=== PATIENT | female | born 1990 | race African-American/Black ===

== ENCOUNTER 2020-10-08 22:26 | Inpatient (IN) | payer OTHER ==
[~2020-10-08] VITALS: Ht 170.2 cm; Wt 110.7 kg
[2020-10-08] MEDS ORDERED: ONDANSETRON PF 4 MG/2 ML VIAL. IVP PRN (22:45)
[2020-10-08] MEDS ORDERED: OXYTOCIN 30 UNIT/500 ML PREMIX 500 ML IV PRN (22:45)
[2020-10-08] MEDS ORDERED: IBUPROFEN 400 MG TABLET. PO PRN (22:45)
[2020-10-08] MEDS ORDERED: 0.9 % SODIUM CHLORIDE 10 ML DISP.SYRIN. IV PRN (22:45)
[2020-10-08] MEDS ORDERED: LIDOCAINE 1% PF 30 ML VIAL. INJ PRN (22:45)
[2020-10-08] MEDS ORDERED: ACETAMINOPHEN 325 MG TABLET. PO PRN (22:45)
[2020-10-08] MEDS ORDERED: IV RINGERS,LACTATED 1000ML 1,000 ML IV PRN (22:45)
[2020-10-08] MEDS ORDERED: TERBUTALINE 1 MG/ML VIAL. SQ PRN (22:45)
[2020-10-09] VITALS (8 sets, daily range): BP systolic 115–143; BP diastolic 59–85
[2020-10-09] MEDS ORDERED: L&D EPIDURAL SYRINGE 50 ML EPID PRN (00:15)
[2020-10-09] MEDS ORDERED: OXYTOCIN PREMIX 30 UNIT/500 ML NS BAG. IV ONE (01:15)
[2020-10-09 01:25] LABS: BASO # 0.1 x10^3/uL (0.0-0.2); BASO % 1 % (0-3); EOS % 0 % (0-3); HEMOGLOBIN 11.9 g/dL (12.0-15.5); LYMPH # 1.9 x10^3/uL (1.0-4.8); LYMPH % 29 % (24-48); MEAN CORPUSCULAR HEMOGLOBIN 28 pg (25-35); MEAN CORPUSCULAR HGB CONC 33 g/dL (31-37); MEAN CORPUSCULAR VOLUME 84 fL (79-100); MONO # 0.7 x10^3/uL (0.0-1.1); MONO % 12 % (0-9); NEUT # 3.7 x10^3/uL (1.8-7.7); NEUT % 58 % (31-73); PLATELET COUNT 140 x10^3/uL (140-400); RED BLOOD COUNT 4.31 x10^6/uL (3.50-5.40); RED CELL DISTRIBUTION WIDTH 14.9 % (11.5-14.5); WHITE BLOOD COUNT 6.4 x10^3/uL (4.0-11.0)
[2020-10-09] MEDS ORDERED: ROPIVacaine 0.2% PF 10 ML VIAL. ONE (01:57)
[2020-10-09] MEDS ORDERED: SUCCINYLCHOLINE 200 MG/10 ML VIAL. ONE (02:11)
[2020-10-09] MEDS ORDERED: ROCURONIUM 50 MG/5 ML VIAL. ONE (02:12)
[2020-10-09] MEDS ORDERED: fentaNYL PF VIAL 100 MCG/2 ML VIAL ONE ×2 (02:17→02:32)
[2020-10-09] MEDS ORDERED: OXYTOCIN 10 UNIT/ML VIAL. ONE (02:37)
[2020-10-09] MEDS ORDERED: ONDANSETRON PF 4 MG/2 ML VIAL. ONE (02:40)
[2020-10-09] MEDS ORDERED: FAMOTIDINE 20 MG/2 ML VIAL ONE (02:40)
[2020-10-09] MEDS ORDERED: IV RINGERS,LACTATED 1000ML 1,000 ML IV SCH (02:45)
[2020-10-09] MEDS ORDERED: PROCHLORPERAZINE 10 MG/2 ML VIAL. IV PRN (02:45)
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
[2020-10-09] MEDS ORDERED: ceFAZolin SODIUM IV Push 1 GM VIAL. IVP ONE (03:06)
[2020-10-09] MEDS ORDERED: SEVOFLURANE 31 TO 60 MINUTES. IH ONE (03:13)
--- NOTE | 2020-10-09 03:15 | PDOC1 ---
OB - History Hx of Present Care: Good Care Ultrasounds: Normal mid trimester US Obstetrical Complications: Gestational Diabetes Medical Complications: None Past Family/Social History * Past Medical, Surgical, Family and Obstetric Histories reviewed from chart. Rubella: Immune RPR/VDRL: Negative GBS Status: Negative HBsAG: Negative OB - Chief Complaint & HPI Date of Admission: Date of Admission: Oct 08, 2020 at 22:26 Chief Complaint/History : 5 Para: 3 EGA: 38 Reason for admission: active labor Admission Nurse Assessment Rev: Yes OB - Admission Exam Physical Exam HEENT: Normal Heart: Regular Rate Lungs: Clear Abdomen: Gravid, Non tender, Soft Extremities: Edema Reflexes: Normal Cervical Dilatation: 7cm Effacement: 100% Station: -2 Membranes: Intact Heart Rate: Normal Accelerations: Accelerations Present Decelerations: Variable decelerations Contractions on Admission: < 5 Minutes Apart Intensity: Firm Text A: 38 wks IUP GDM A1 Limited PNC P: Admit labor management. KATTY KRAUSE Jr, MD Oct 09, 2020 03:14
--- NOTE | 2020-10-09 03:21 | RAD ---
XR ABDOMEN 1V 10/09/2020 2:49 AM INDICATION: Instrument count COMPARISON: None available. TECHNIQUE: Single supine view the abdomen is provided. FINDINGS/ IMPRESSION: No radiopaque foreign density is identified. Phleboliths are identified within the pelvis. Nonobstructed bowel gas pattern. Electronically signed by: Georgette Saenz MD (10/09/2020 3:18 AM) JESUS
--- NOTE | 2020-10-09 03:21 | PDOC4 ---
OB Operative Note Date: Oct 09, 2020 PRE OP DIAGNOSIS: NRFHT POST OP DIAGNOSIS: NRFHT OPERATION PERFORMED: L [facility] Surgeon Dr. Quiroga Anesthesia: Gen Blood Loss 1000 ml Specimen placenta and OB Findings: Position (Vertex), Sex (Male), (7/9), Weight (pending) Complications none Additional Remarks pt. KATTY Simon Jr, MD Oct 09, 2020 03:21
[2020-10-09] MEDS ORDERED: ZOLPIDEM 5 MG TABLET. PO PRN (03:30)
[2020-10-09] MEDS ORDERED: diphenhydrAMINE ORAL ELIXIR 12.5 MG/5 ML ML PO PRN (03:30)
[2020-10-09] MEDS ORDERED: ONDANSETRON PF 4 MG/2 ML VIAL. IV PRN (03:30)
[2020-10-09] MEDS ORDERED: NALOXONE 0.4 MG/ML VIAL. IV PRN (03:30)
[2020-10-09] MEDS ORDERED: MAG HYDROX/ALUMINUM HYD/SIMETH 30 ML ORAL.SUSP PO PRN (03:30)
[2020-10-09] MEDS ORDERED: 0.9 % SODIUM CHLORIDE 10 ML DISP.SYRIN. IV PRN (03:30)
[2020-10-09] MEDS ORDERED: IV NORMAL SALINE 1000ML BAG 1,000 ML IV SCH (03:30)
[2020-10-09] MEDS ORDERED: OXYTOCIN 30 UNIT/500 ML PREMIX 500 ML IV PRN (03:30)
[2020-10-09] MEDS: fentaNYL PF VIAL 100 MCG/2 ML VIAL IVP PRN ×3 (03:54→05:28)
--- NOTE | 2020-10-09 04:49 | OP ---
DATE OF SURGERY: PREOPERATIVE DIAGNOSES: 1. A 38 weeks' intrauterine . 2. intolerance to labor. POSTOPERATIVE DIAGNOSES: 1. A 38 weeks' intrauterine . 2. intolerance to labor. PROCEDURE: Primary low transverse section. SURGEON: Katty Quiroga MD ANESTHESIA: GETA. ESTIMATED BLOOD LOSS: 1000 mL. FINDINGS: Viable infant, Apgars 7 and 9, weight pending. Three-vessel cord placenta delivered manually intact. COMPLICATIONS: None. SUMMARY: A 30-year-old 5, para 3, at 38 weeks, presented in active labor. She was dilated up to 7 cm. The patient had rupture of membranes for which internal monitors were placed. The patient was still demonstrated bradycardia down in the 50s. She was counseled on emergency section, risks, benefits and expectations, and voiced clear understanding to proceed. DESCRIPTION OF PROCEDURE: The patient was taken to surgery suite and placed in dorsal supine position, was prepped with ChloraPrep and draped in sterile fashion. After adequate anesthesia, Pfannenstiel skin incision was made with a scalpel down to and through the fascia. The fascia was extended laterally using curved Chavarria scissors. The superior edge of fascia was grasped with 2 Joel clamps and dissected free of the abdominal rectus muscles using blunt dissection along with curved Chavarria scissors. The same process took place inferiorly. The abdominal rectus muscle dissected bluntly at the midline along with curved Chavarria scissors. Peritoneum was grasped with 2 hemostats and entered sharply with Metzenbaum scissors. This incision was extended superiorly as well as inferiorly. The Reilly ring retractor was placed. A low transverse hysterotomy incision was made with scalpel down to the infant. Hysterotomy incision was extended laterally and superiorly digitally. With the aid of fundal pressure, the infant's head was delivered in a smooth atraumatic manner. With additional fundal pressure, the anterior shoulder was delivered followed by posterior shoulder and rest of was delivered. Infant was suctioned with a bulb syringe orally and nasally, umbilical cord was clamped twice and cut, and the was handed to waiting nursing staff. Umbilical cord blood and arterial pH was then obtained. Three-vessel cord placenta was delivered manually intact. The uterus was exteriorized and cleared of clot and debris with moist lap. Hysterotomy incision was reapproximated using #1 Vicryl suture in running fashion and imbricated layer of #1 Vicryl suture was also placed for good hemostasis. [id number] suture was placed in both apexes of the hysterotomy incision for better hemostasis. Uterus palpated firm. Fallopian tubes and ovaries appeared normal bilaterally. Posterior cul-de-sac was cleared of clot and debris with moist lap. The uterus was then returned to the abdomen. Paracolic gutters were cleared of clot and debris with moist lap. The hysterotomy incision reviewed, was hemostatic. The Reilly ring retractor was removed. The peritoneum was reapproximated using #1 Vicryl suture in running fashion. Abdominal rectus muscles were reapproximated using #1 Vicryl suture in running fashion. Fascia was reapproximated using 0 Vicryl suture in running fashion. Skin was reapproximated using 4-0 Vicryl suture in subcuticular manner. The patient tolerated the procedure well and was taken to recovery room in stable condition. X-ray was performed due to emergency , and x-ray did not indicate any retained instruments or sponges. KATTY QUIROGA MD DR: PARTH/maru JOB#: [id number] / [id number]
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
[2020-10-09] MEDS: KETOROLAC 30 MG/ML VIAL. IV PRN ×2 (11:04→17:18)
[2020-10-09] MEDS: oxyCODONE/APAP 5/325 1 TAB TABLET PO PRN ×3 (11:58→20:05)
[2020-10-09] MEDS: SIMETHICONE 80 MG TAB.CHEW PO PRN (15:28)
[2020-10-09] MEDS: FERROUS SULFATE 325 MG TABLET. PO SCH ×2 (17:00→17:18)
[2020-10-09] MEDS: DOCUSATE SODIUM 100 MG CAPSULE. PO PRN (17:18)
[2020-10-09] MEDS: IBUPROFEN 400 MG TABLET. PO PRN (17:25)
[2020-10-10] MEDS: oxyCODONE/APAP 5/325 1 TAB TABLET PO PRN ×6 (00:39→22:50)
[2020-10-10] MEDS: IBUPROFEN 400 MG TABLET. PO PRN ×3 (04:20→22:51)
[2020-10-10 06:30] VITALS: BP 152/89
[2020-10-10 09:00] LABS: BASO % 0 % (0-3); EOS % 0 % (0-3); HEMATOCRIT 25.3 % (36.0-47.0); HEMOGLOBIN 8.2 g/dL (12.0-15.5); LYMPH # 1.8 x10^3/uL (1.0-4.8); LYMPH % 21 % (24-48); MEAN CORPUSCULAR HEMOGLOBIN 28 pg (25-35); MEAN CORPUSCULAR HGB CONC 33 g/dL (31-37); MEAN CORPUSCULAR VOLUME 85 fL (79-100); MONO # 0.7 x10^3/uL (0.0-1.1); MONO % 8 % (0-9); NEUT # 5.9 x10^3/uL (1.8-7.7); NEUT % 70 % (31-73); PLATELET COUNT 139 x10^3/uL (140-400); RED BLOOD COUNT 2.97 x10^6/uL (3.50-5.40); RED CELL DISTRIBUTION WIDTH 14.9 % (11.5-14.5); WHITE BLOOD COUNT 8.4 x10^3/uL (4.0-11.0)
[2020-10-10] MEDS: DOCUSATE SODIUM 100 MG CAPSULE. PO PRN ×2 (09:28→21:20)
[2020-10-10] MEDS: MULTIVITAMIN with MINERAL TABLET. PO SCH (09:28)
[2020-10-10] MEDS: FERROUS SULFATE 325 MG TABLET. PO SCH ×2 (09:28→17:10)
[2020-10-10 10:25] VITALS: BP 128/75
--- NOTE | 2020-10-10 13:35 | PDOC ---
OB Progress Note Date of Service 10/10/20 Time of Evaluation 1330 Notes Pt. feeling well. Pain controlled. No complaints. Lab Laboratory Tests Test 10/09/20 01:10 10/09/20 01:25 10/10/20 08:30 White Blood Count 6.4 x10^3/uL (4.0-11.0) 8.4 x10^3/uL (4.0-11.0) Red Blood Count 4.31 x10^6/uL (3.50-5.40) 2.97 x10^6/uL (3.50-5.40) Hemoglobin 11.9 g/dL (12.0-15.5) 8.2 g/dL (12.0-15.5) Hematocrit 36.0 % (36.0-47.0) 25.3 % (36.0-47.0) Mean Corpuscular Volume 84 fL (79-100) 85 fL (79-100) Mean Corpuscular Hemoglobin 28 pg (25-35) 28 pg (25-35) Mean Corpuscular Hemoglobin Concent 33 g/dL (31-37) 33 g/dL (31-37) Red Cell Distribution Width 14.9 % (11.5-14.5) 14.9 % (11.5-14.5) Platelet Count 140 x10^3/uL (140-400) 139 x10^3/uL (140-400) Neutrophils (%) (Auto) 58 % (31-73) 70 % (31-73) Lymphocytes (%) (Auto) 29 % (24-48) 21 % (24-48) Monocytes (%) (Auto) 12 % (0-9) 8 % (0-9) Eosinophils (%) (Auto) 0 % (0-3) 0 % (0-3) Basophils (%) (Auto) 1 % (0-3) 0 % (0-3) Neutrophils # (Auto) 3.7 x10^3/uL (1.8-7.7) 5.9 x10^3/uL (1.8-7.7) Lymphocytes # (Auto) 1.9 x10^3/uL (1.0-4.8) 1.8 x10^3/uL (1.0-4.8) Monocytes # (Auto) 0.7 x10^3/uL (0.0-1.1) 0.7 x10^3/uL (0.0-1.1) Eosinophils # (Auto) 0.0 x10^3/uL (0.0-0.7) 0.0 x10^3/uL (0.0-0.7) Basophils # (Auto) 0.1 x10^3/uL (0.0-0.2) 0.0 x10^3/uL (0.0-0.2) Glucose Level 82 mg/dL (70-99) Treponema pallidum Antibody Nonreactive (Nonreactive) SARS-CoV-2 Antigen (Rapid) Negative (NEGATIVE) Laboratory Tests Test 10/10/20 08:30 White Blood Count 8.4 x10^3/uL (4.0-11.0) Red Blood Count 2.97 x10^6/uL (3.50-5.40) Hemoglobin 8.2 g/dL (12.0-15.5) Hematocrit 25.3 % (36.0-47.0) Mean Corpuscular Volume 85 fL (79-100) Mean Corpuscular Hemoglobin 28 pg (25-35) Mean Corpuscular Hemoglobin Concent 33 g/dL (31-37) Red Cell Distribution Width 14.9 % (11.5-14.5) Platelet Count 139 x10^3/uL (140-400) Neutrophils (%) (Auto) 70 % (31-73) Lymphocytes (%) (Auto) 21 % (24-48) Monocytes (%) (Auto) 8 % (0-9) Eosinophils (%) (Auto) 0 % (0-3) Basophils (%) (Auto) 0 % (0-3) Neutrophils # (Auto) 5.9 x10^3/uL (1.8-7.7) Lymphocytes # (Auto) 1.8 x10^3/uL (1.0-4.8) Monocytes # (Auto) 0.7 x10^3/uL (0.0-1.1) Eosinophils # (Auto) 0.0 x10^3/uL (0.0-0.7) Basophils # (Auto) 0.0 x10^3/uL (0.0-0.2) Medications Current Medications Sodium Chloride (Normal Saline Flush) 3 ml QSHIFT PRN IV AFTER MEDS AND BLOOD DRAWS; Start 10/08/20 at 22:45; Stop 10/09/20 at 10:45; Status DC Ringer's Solution 1,000 ml @ 125 mls/hr Q8H PRN IV hydration; Start 10/08/20 at 22:45 Fentanyl Citrate (Fentanyl 2ml Vial) 100 mcg PRN Q30MIN PRN IVP Severe pain Last administered on 10/09/20at 05:28; Start 10/08/20 at 22:45 Acetaminophen (Tylenol) 650 mg PRN Q6HRS PRN PO MILD PAIN / TEMP > 100.3'F Last administered on 10/09/20at 23:06; Start 10/08/20 at 22:45 Ondansetron HCl (Zofran) 8 mg PRN Q6HRS PRN IVP NAUSEA/VOMITING 1ST CHOICE; Start 10/08/20 at 22:45; Stop 10/09/20 at 10:46; Status DC Terbutaline Sulfate (Brethine) 0.25 mg 1X PRN PRN SQ SEE COMMENTS; Start 10/08/20 at 22:45; Stop 10/09/20 at 22:44; Status DC Lidocaine HCl (Xylocaine 1% Pf 30ml Vial) 30 ml 1X PRN PRN INJ SEE COMMENTS; Start 10/08/20 at 22:45; Stop 10/10/20 at 22:44 Oxytocin 500 ml @ 0 mls/hr CONT PRN PRN IV Post delivery bleeding; Start 10/08/20 at 22:45 Ibuprofen (Motrin) 800 mg PRN Q6HRS PRN PO MODERATE PAIN 4-6; Start 10/08/20 at 22:45; Stop 10/09/20 at 10:46; Status DC Fentanyl Citrate 50 ml @ 14 mls/hr CONT PRN EPID PAIN; Start 10/09/20 at 00:15 Ropivacaine (Naropin 0.2%) 10 ml STK-MED ONCE .ROUTE ; Start 10/09/20 at 01:57; Stop 10/09/20 at 01:58; Status DC Succinylcholine Chloride (Anectine) 200 mg STK-MED ONCE .ROUTE ; Start 10/09/20 at 02:11; Stop 10/09/20 at 02:11; Status DC Rocuronium [place] (Zemuron) 50 mg STK-MED ONCE .ROUTE ; Start 10/09/20 at 02:12; Stop 10/09/20 at 02:13; Status DC Fentanyl Citrate (Fentanyl 2ml Vial) 100 mcg STK-MED ONCE .ROUTE ; Start 10/09/20 at 02:17; Stop 10/09/20 at 02:17; Status DC Fentanyl Citrate (Fentanyl 2ml Vial) 100 mcg STK-MED ONCE .ROUTE ; Start 10/09/20 at 02:32; Stop 10/09/20 at 02:32; Status DC Oxytocin (Pitocin) 10 unit STK-MED ONCE .ROUTE ; Start 10/09/20 at 02:37; Stop 10/09/20 at 02:37; Status DC Ringer's Solution 1,000 ml @ 30 mls/hr Q24H IV Last administered on 10/09/20at 06:20; Start 10/09/20 at 02:45; Stop 10/09/20 at 14:44; Status DC Prochlorperazine Edisylate (Compazine) 5 mg PACU PRN PRN IV NAUSEA, MRX1; Start 10/09/20 at 02:45; Stop 10/09/20 at 10:50; Status DC Famotidine (Pepcid Vial) 20 mg STK-MED ONCE .ROUTE ; Start 10/09/20 at 02:40; Stop 10/09/20 at 02:40; Status DC Ondansetron HCl (Zofran) 4 mg STK-MED ONCE .ROUTE ; Start 10/09/20 at 02:40; Stop 10/09/20 at 02:41; Status DC Ephedrine Sulfate (Akovaz) 50 mg STK-MED ONCE .ROUTE ; Start 10/09/20 at 03:03; Stop 10/09/20 at 03:03; Status DC Cefazolin Sodium (Ancef) 1 gm STK-MED ONCE IVP ; Start 10/09/20 at 03:06; Stop 10/09/20 at 03:06; Status DC Sevoflurane (Ultane) 30 ml STK-MED ONCE IH ; Start 10/09/20 at 03:13; Stop 10/09/20 at 03:14; Status DC Sodium Chloride (Normal Saline Flush) 3 ml QSHIFT PRN IV AFTER MEDS AND BLOOD DRAWS; Start 10/09/20 at 03:30 Oxytocin 500 ml @ 125 mls/hr CONT PRN IV EXCESSIVE POST- BLEEDING; Start 10/09/20 at 03:30; Stop 10/09/20 at 11:29; Status DC Ibuprofen (Motrin) 800 mg PRN Q8HRS PRN PO INFLAMMATION Last administered on 10/10/20 04:20; Start 10/09/20 at 03:30 Ondansetron HCl (Zofran) 4 mg PRN Q6HRS PRN IV NAUSEA/VOMITING 1ST CHOICE; Start 10/09/20 at 03:30 Docusate Sodium (Colace) 100 mg PRN BID PRN PO CONSTIPATION 1ST CHOICE Last administered on 10/10/20 09:28; Start 10/09/20 at 03:30 Al Hydroxide/Mg Hydroxide (Mylanta Plus Xs) 30 ml PRN Q4HRS PRN PO HEARTBURN / GAS Last administered on 10/09/20at 23:06; Start 10/09/20 at 03:30 Simethicone (Gas-X) 80 mg PRN AFTMEALHC PRN PO GAS / BLOATING Last administered on 10/09/20at 15:28; Start 10/09/20 at 03:30 Diphenhydramine HCl (Benadryl Oral Elixir) 12.5 mg PRN Q6HRS PRN PO ITCHING; Start 10/09/20 at 03:30 Ferrous Sulfate (Feosol) 325 mg BIDWMEALS PO Last administered on 10/10/20 09:28; Start 10/09/20 at 08:00 Zolpidem Tartrate (Ambien) 5 mg PRN QHS PRN PO INSOMNIA, MAY REPEAT X1; Start 10/09/20 at 03:30 Oxycodone/ Acetaminophen (Percocet 5/325) 2 tab PRN Q4HRS PRN PO MODERATE PAIN, SEVERE PAIN Last administered on 10/10/20at 11:42; Start 10/09/20 at 03:30 Ketorolac Tromethamine (Toradol 30mg Vial) 30 mg PRN Q6HRS PRN IV INFLAMMATION/PAIN Last administered on 10/09/20at 11:04; Start 10/09/20 at 03:30; Stop 10/14/20 at 03:29 Multivitamins (Thera M Plus) 1 tab DAILY PO Last administered on 10/10/20at 09:28; Start 10/09/20 at 09:00 Fentanyl Citrate 30 ml @ 0 mls/hr CONT PRN PRN IV PER PROTOCOL Last a dministered on 10/09/20at 05:49; Start 10/09/20 at 03:30 Naloxone HCl (Narcan) 0.4 mg PRN Q2MIN PRN IV SEE INSTRUCTIONS; Start 10/09/20 at 03:30 Sodium Chloride 1,000 ml @ 25 mls/hr Q24H IV ; Start 10/09/20 at 03:30 Oxytocin (Oxytocin Premix Infusion) 30 unit STK-MED ONCE IV ; Start 10/09/20 at 01:15; Stop 10/09/20 at 08:52; Status DC Exam Abd: soft, mild tenderness, fundus firm Incision site: clean, dry and intact Assessment POD#1 s/p c/s Plan of Care: Continue current Tx, Mgmt KATTY KRAUSE Jr, MD Oct 10, 2020 13:35
[2020-10-10 17:15] VITALS: BP 138/76
[2020-10-10 21:39] VITALS: BP 125/75
[2020-10-11] MEDS: oxyCODONE/APAP 5/325 1 TAB TABLET PO PRN ×4 (05:24→22:39)
[2020-10-11 05:30] VITALS: BP 129/80
[2020-10-11] MEDS: FERROUS SULFATE 325 MG TABLET. PO SCH ×2 (08:12→18:32)
[2020-10-11] MEDS: DOCUSATE SODIUM 100 MG CAPSULE. PO PRN ×2 (08:12→20:12)
[2020-10-11] MEDS: MULTIVITAMIN with MINERAL TABLET. PO SCH (08:13)
[2020-10-11] MEDS: IBUPROFEN 400 MG TABLET. PO PRN ×2 (09:33→20:11)
[2020-10-11 11:45] VITALS: BP 143/83
[2020-10-11] MEDS ORDERED: HYDROcodone/APAP 5/325MG 1 TAB TABLET PO PRN ×2 (14:00)
--- NOTE | 2020-10-11 14:09 | PDOC ---
OB Progress Note Date of Service 10/11/20 Time of Evaluation 1400 Notes Pt. feeling well. No complaints. Lab Laboratory Tests Test 10/10/20 08:30 White Blood Count 8.4 x10^3/uL (4.0-11.0) Red Blood Count 2.97 x10^6/uL (3.50-5.40) Hemoglobin 8.2 g/dL (12.0-15.5) Hematocrit 25.3 % (36.0-47.0) Mean Corpuscular Volume 85 fL (79-100) Mean Corpuscular Hemoglobin 28 pg (25-35) Mean Corpuscular Hemoglobin Concent 33 g/dL (31-37) Red Cell Distribution Width 14.9 % (11.5-14.5) Platelet Count 139 x10^3/uL (140-400) Neutrophils (%) (Auto) 70 % (31-73) Lymphocytes (%) (Auto) 21 % (24-48) Monocytes (%) (Auto) 8 % (0-9) Eosinophils (%) (Auto) 0 % (0-3) Basophils (%) (Auto) 0 % (0-3) Neutrophils # (Auto) 5.9 x10^3/uL (1.8-7.7) Lymphocytes # (Auto) 1.8 x10^3/uL (1.0-4.8) Monocytes # (Auto) 0.7 x10^3/uL (0.0-1.1) Eosinophils # (Auto) 0.0 x10^3/uL (0.0-0.7) Basophils # (Auto) 0.0 x10^3/uL (0.0-0.2) Medications Current Medications Sodium Chloride (Normal Saline Flush) 3 ml QSHIFT PRN IV AFTER MEDS AND BLOOD DRAWS; Start 10/08/20 at 22:45; Stop 10/09/20 at 10:45; Status DC Ringer's Solution 1,000 ml @ 125 mls/hr Q8H PRN IV hydration; Start 10/08/20 at 22:45 Fentanyl Citrate (Fentanyl 2ml Vial) 100 mcg PRN Q30MIN PRN IVP Severe pain Last administered on 10/09/20at 05:28; Start 10/08/20 at 22:45 Acetaminophen (Tylenol) 650 mg PRN Q6HRS PRN PO MILD PAIN / TEMP > 100.3'F Last administered on 10/09/20at 23:06; Start 10/08/20 at 22:45 Ondansetron HCl (Zofran) 8 mg PRN Q6HRS PRN IVP NAUSEA/VOMITING 1ST CHOICE; Start 10/08/20 at 22:45; Stop 10/09/20 at 10:46; Status DC Terbutaline Sulfate (Brethine) 0.25 mg 1X PRN PRN SQ SEE COMMENTS; Start 10/08/20 at 22:45; Stop 10/09/20 at 22:44; Status DC Lidocaine HCl (Xylocaine 1% Pf 30ml Vial) 30 ml 1X PRN PRN INJ SEE COMMENTS; Start 10/08/20 at 22:45; Stop 10/10/20 at 22:44; Status DC Oxytocin 500 ml @ 0 mls/hr CONT PRN PRN IV Post delivery bleeding; Start 10/08/20 at 22:45 Ibuprofen (Motrin) 800 mg PRN Q6HRS PRN PO MODERATE PAIN 4-6; Start 10/08/20 at 22:45; Stop 10/09/20 at 10:46; Status DC Fentanyl Citrate 50 ml @ 14 mls/hr CONT PRN EPID PAIN; Start 10/09/20 at 00:15 Ropivacaine (Naropin 0.2%) 10 ml STK-MED ONCE .ROUTE ; Start 10/09/20 at 01:57; Stop 10/09/20 at 01:58; Status DC Succinylcholine Chloride (Anectine) 200 mg STK-MED ONCE .ROUTE ; Start 10/09/20 at 02:11; Stop 10/09/20 at 02:11; Status DC Rocuronium [place] (Zemuron) 50 mg STK-MED ONCE .ROUTE ; Start 10/09/20 at 02:12; Stop 10/09/20 at 02:13; Status DC Fentanyl Citrate (Fentanyl 2ml Vial) 100 mcg STK-MED ONCE .ROUTE ; Start 10/09/20 at 02:17; Stop 10/09/20 at 02:17; Status DC Fentanyl Citrate (Fentanyl 2ml Vial) 100 mcg STK-MED ONCE .ROUTE ; Start 10/09/20 at 02:32; Stop 10/09/20 at 02:32; Status DC Oxytocin (Pitocin) 10 unit STK-MED ONCE .ROUTE ; Start 10/09/20 at 02:37; Stop 10/09/20 at 02:37; Status DC Ringer's Solution 1,000 ml @ 30 mls/hr Q24H IV Last administered on 10/09/20at 06:20; Start 10/09/20 at 02:45; Stop 10/09/20 at 14:44; Status DC Prochlorperazine Edisylate (Compazine) 5 mg PACU PRN PRN IV NAUSEA, MRX1; Start 10/09/20 at 02:45; Stop 10/09/20 at 10:50; Status DC Famotidine (Pepcid Vial) 20 mg STK-MED ONCE .ROUTE ; Start 10/09/20 at 02:40; Stop 10/09/20 at 02:40; Status DC Ondansetron HCl (Zofran) 4 mg STK-MED ONCE .ROUTE ; Start 10/09/20 at 02:40; Stop 10/09/20 at 02:41; Status DC Ephedrine Sulfate (Akovaz) 50 mg STK-MED ONCE .ROUTE ; Start 10/09/20 at 03:03; Stop 10/09/20 at 03:03; Status DC Cefazolin Sodium (Ancef) 1 gm STK-MED ONCE IVP ; Start 10/09/20 at 03:06; Stop 10/09/20 at 03:06; Status DC Sevoflurane (Ultane) 30 ml STK-MED ONCE IH ; Start 10/09/20 at 03:13; Stop 10/09/20 at 03:14; Status DC Sodium Chloride (Normal Saline Flush) 3 ml QSHIFT PRN IV AFTER MEDS AND BLOOD DRAWS; Start 10/09/20 at 03:30 Oxytocin 500 ml @ 125 mls/hr CONT PRN IV EXCESSIVE POST- BLEEDING; Start 10/09/20 at 03:30; Stop 10/09/20 at 11:29; Status DC Ibuprofen (Motrin) 800 mg PRN Q8HRS PRN PO INFLAMMATION Last administered on 10/11/20at 09:33; Start 10/09/20 at 03:30 Ondansetron HCl (Zofran) 4 mg PRN Q6HRS PRN IV NAUSEA/VOMITING 1ST CHOICE; Start 10/09/20 at 03:30 Docusate Sodium (Colace) 100 mg PRN BID PRN PO CONSTIPATION 1ST CHOICE Last administered on 10/11/20 08:12; Start 10/09/20 at 03:30 Al Hydroxide/Mg Hydroxide (Mylanta Plus Xs) 30 ml PRN Q4HRS PRN PO HEARTBURN / GAS Last administered on 10/09/20at 23:06; Start 10/09/20 at 03:30 Simethicone (Gas-X) 80 mg PRN AFTMEALHC PRN PO GAS / BLOATING Last administered on 10/09/20at 15:28; Start 10/09/20 at 03:30 Diphenhydramine HCl (Benadryl Oral Elixir) 12.5 mg PRN Q6HRS PRN PO ITCHING; Start 10/09/20 at 03:30 Ferrous Sulfate (Feosol) 325 mg BIDWMEALS PO Last administered on 10/11/20 08:12; Start 10/09/20 at 08:00 Zolpidem Tartrate (Ambien) 5 mg PRN QHS PRN PO INSOMNIA, MAY REPEAT X1; Start 10/09/20 at 03:30 Oxycodone/ Acetaminophen (Percocet 5/325) 2 tab PRN Q4HRS PRN PO MODERATE PAIN, SEVERE PAIN Last administered on 10/11/20 13:31; Start 10/09/20 at 03:30 Ketorolac Tromethamine (Toradol 30mg Vial) 30 mg PRN Q6HRS PRN IV INFLAMMATION/PAIN Last administered on 10/09/20at 11:04; Start 10/09/20 at 03:30; Stop 10/14/20 at 03:29 Multivitamins (Thera M Plus) 1 tab DAILY PO Last administered on 10/11/20 08:13; Start 10/09/20 at 09:00 Fentanyl Citrate 30 ml @ 0 mls/hr CONT PRN PRN IV PER PROTOCOL Last administered on 10/09/20at 05:49; Start 10/09/20 at 03:30 Naloxone HCl (Narcan) 0.4 mg PRN Q2MIN PRN IV SEE INSTRUCTIONS; Start 10/09/20 at 03:30 Sodium Chloride 1,000 ml @ 25 mls/hr Q24H IV ; Start 10/09/20 at 03:30 Oxytocin (Oxytocin Premix Infusion) 30 unit STK-MED ONCE IV ; Start 10/09/20 at 01:15; Stop 10/09/20 at 08:52; Status DC Acetaminophen/ Hydrocodone Bitart (Lortab 5/325) 1 tab PRN Q4HRS PRN PO MODERATE PAIN; Start 10/11/20 at 14:00 Acetaminophen/ Hydrocodone Bitart (Lortab 5/325) 2 tab PRN Q4HRS PRN PO SEVERE PAIN; Start 10/11/20 at 14:00 Exam Abd: soft, mild tenderness, fundus firm Incision site: clean, dry and intact Assessment POD#2 s/p c/s Plan of Care: Continue current Tx, Mgmt KATTY KRAUSE Jr, MD Oct 11, 2020 14:09
[2020-10-11 18:44] VITALS: BP 120/79
[2020-10-11] MEDS ORDERED: MAGNESIUM HYDROXIDE 2,400 MG/30 ML ORAL.SUSP. PO ONE (20:30)
[2020-10-11] MEDS: SIMETHICONE 80 MG TAB.CHEW PO PRN (20:31)
[2020-10-11 21:08] VITALS: BP 141/95
[2020-10-12 01:28] VITALS: BP 135/83
[2020-10-12] MEDS: oxyCODONE/APAP 5/325 1 TAB TABLET PO PRN ×4 (03:02→12:47)
[2020-10-12 04:32] VITALS: BP 129/90
[2020-10-12] MEDS: IBUPROFEN 400 MG TABLET. PO PRN (06:01)
[2020-10-12] MEDS: DOCUSATE SODIUM 100 MG CAPSULE. PO PRN (08:58)
[2020-10-12] MEDS: MULTIVITAMIN with MINERAL TABLET. PO SCH (08:58)
[2020-10-12] MEDS: FERROUS SULFATE 325 MG TABLET. PO SCH (09:54)
--- NOTE | 2020-10-12 09:57 | PDOC3 ---
OB DISCHARGE SUMMARY DATE OF ADMISSION: 10/09/20 DATE OF DISCHARGE: 10/12/20 REASON FOR ADMISSION: Onset of labor INTRAPARTUM PROCEDURES: : Low Cerv Trans DISCHARGE DIAGNOSIS: Term Delivered ( intolerance to labor) DISCHARGE INFORMATION: Activity (ad alfredo), Diet (regular), Instructions (pelvic rest x 6wks, no driving x 2 wks, no lifting > 20 lbs. x 4 wks) HOSPITAL COURSE Term gestation delivered via cearean section without complications. KATTY KRAUSE Jr, MD Oct 12, 2020 09:56
[2020-10-12] MEDS ORDERED: IBUP-1027 PO (10:05)
[2020-10-12] MEDS ORDERED: OXYC1TAB15 PO (10:05)
[2020-10-12] MEDS ORDERED: DOCU-153 PO (10:05)
--- NOTE | 2020-10-12 10:05 | DISCH ---
DISCHARGE INSTRUCTIONS Condition on Discharge Condition on Discharge: Stable Activity After Discharge Activity Instructions for Disc: Activity as tolerated Lifting Instructions after Dis: No heavy lifting Driving Instructions after Dis: No driving for 2 weeks Diet after Discharge Diet after Discharge: Regular Contacting the [facility] after DC Call your doctor for: Concerns you may have Follow-Up Follow up with: Dr. Quiroga in 2 wks KATTY QUIROGA Jr, MD Oct 12, 2020 10:05
[2020-10-12 13:00] VITALS: BP 144/89
--- NOTE | 2020-10-12 13:20 | NUR ---
Discharge and follow up instructions reviewed and given to pt along with Rx x3. Pt denied any complaints or questions regarding instructions. Pt ambulated out of the hospital with staff and her sister by her side.
--- NOTE | 2020-10-14 14:07 | PATHOLOGY ---
[facility] Accession Number: [id number] . 01 Material submitted: . placenta - PLACENTA AND CORD . 01 Clinical history: . EMERGENT C/S FHR DROP TO 60'S,38.5 WKS,EDC 10/18/20 . 02 Diagnosis: 565 gram early term placenta of an estimated 38.5 weeks gestation with attached membranes and attached and separate segments of umbilical cord: - Few sub-amniotic pigmented macrophages consistent with meconium staining. - Focal recent marginal and retromembranous hemorrhage. - Chorangiosis, focal. LBQ 10/14/2020 1312 Local . 02 Comment: There is no evidence of an acute chorioamnionitis or villitis. There are no infarcts. (JPM/db; 10/14/2020) . 02 Electronically signed: . Vinny Horvath MD, Pathologist NPI- [id number] . 01 Gross description: . Received in formalin labeled "Noelle Mayfield, placenta" is a klein placenta with attached membranes and umbilical cord. The placental disc measures 19.5 x 15.7 x 4.0 cm. The membranes are green tinged and slimy with the site of membrane rupture unable to be determined. The membranes have marginal insertion. The umbilical cord measures 10.5 cm in length, 1.5 cm in diameter, contains three vessels and inserts centrally, 7.5 cm from the closest placental margin. A separate segment of umbilical cord is present within the container, measuring 26.5 cm in length and 1.7 cm in diameter. There are no true knots in the umbilical cord. The trimmed placental weight is 565 grams. The surface is green tinged with moderate subchorionic fibrin. The amnion is mostly stripped away from the underlying surface. Amnion nodosum is not present. Cysts are not present. The maternal surface has intact cotyledons and no basal hemorrhage. Sectioning through the placental disc reveals focal calcifications and no acute or chronic infarcts. Courseware Developer sections are submitted as follows: . A1 proximal and distal umbilical cord A2 membranes, rolled A3 sales representative cash registers peripheral placenta A4 sales representative cash registers central placenta A5 additional maternal surface A6 surface adjacent to umbilical cord insertion site ([facility] [place]; 10/11/2020) [facility] 10/14/2020 1130 Local . 02 Pathologist provided ICD-10: O43.893, Z37.9, Z3A.38 . 02 CPT . 684476 Specimen Comment: A courtesy copy of this report has been sent to [phone] Specimen Comment: Report sent to Performed at: 01 [facility] [address], [place] [id number] MD [place] Arita MD Phone: [phone] Performed at: 02 [facility] [address], [place] [id number] MD Vinny Horvath MD Phone: [phone]
[2020-11-26] MEDS ORDERED: SERT25TA PO (12:37)
== END 2020-10-12 13:24 | disposition home or self-care (01) | DRG 788 ==
LOC: OBSVTOIN 22:26 → 3 SO LND 22:26 → INTOOBSV 22:26 → 3 SO LND 10-09 03:30 → 3 NORTH 10-09 09:00
PROVIDERS: ADMIT Obstetrics & Gynecology; ATTEND Obstetrics & Gynecology
PROC: 10D00Z1 Extraction of Products of Conception, Low, Open Approach (ICD-10-PCS; principal; 2020-10-09)
DX: O76 Abnormality in fetal heart rate and rhythm complicating labor and delivery (principal); Z20.822 Contact with and (suspected) exposure to COVID-19; O24.429 Gestational diabetes mellitus in childbirth, unspecified control; O77.0 Labor and delivery complicated by meconium in amniotic fluid; Z3A.38 38 weeks gestation of pregnancy; Z37.0 Single live birth
CPT/HCPCS: 36415; 74018; 82947; 85025; 86592; 86850; 86900; 86901; 87426; 88307; G0378; J0330; J0690; J1885; J2405; J2590; J3010; J3490; J7120; U0003

== ENCOUNTER → 2020-11-24 | Outpatient (CLI) | payer OTHER ==
[~2020-11-24] MED LIST: DOCU-153 PO; IBUP-1027 PO; OXYC1TAB15 PO; SERT25TA PO
== END ==
LOC: LAB 10:32
PROVIDERS: ATTEND Obstetrics & Gynecology
DX: Z01.812 Encounter for preprocedural laboratory examination (principal); Z20.822 Contact with and (suspected) exposure to COVID-19
CPT/HCPCS: U0003

== ENCOUNTER 2020-11-27 07:16 | Day surgery (SDC) | payer OTHER ==
[~2020-11-27 07:16] MED LIST changes: +HYDROmorphone 2 MG/ML VIAL IVP PRN; +MORPHINE SULFATE 2 MG/ML VIAL. IVP PRN; +fentaNYL PF VIAL 100 MCG/2 ML VIAL IVP PRN
[2020-11-27] MEDS: IV RINGERS,LACTATED 1000ML 1,000 ML IV SCH ×2 (07:48→10:14)
[2020-11-27] MEDS ORDERED: PROPOFOL 10 MG/ML (20ML) VIAL. IV ONE (08:57)
[2020-11-27] MEDS ORDERED: LIDOCAINE 2% PF 5 ML VIAL. ONE (08:57)
[2020-11-27] MEDS ORDERED: BUPIVACAINE-EPI 0.25% 30 ML VIAL KIT. ONE ×2 (08:57→08:58)
[2020-11-27] MEDS ORDERED: fentaNYL PF VIAL 100 MCG/2 ML VIAL ONE ×2 (08:57→09:57)
[2020-11-27] MEDS ORDERED: DEXAMETHASONE SOD PHOS 4 MG/ML VIAL ONE (09:19)
[2020-11-27] MEDS ORDERED: ONDANSETRON PF 4 MG/2 ML VIAL. ONE (09:19)
[2020-11-27] MEDS ORDERED: SEVOFLURANE 16 TO 30 MINUTES. IH ONE (09:19)
[2020-11-27] MEDS ORDERED: GLYCOPYRROLATE 1 MG/5 ML VIAL. ONE (09:39)
[2020-11-27] MEDS ORDERED: NEOSTIGMINE METHYLSULFATE 5 MG/5 ML SYRINGE. ONE (09:39)
--- NOTE | 2020-11-27 09:45 | PDOC ---
BRIEF OPERATIVE NOTE Date: Nov 27, 2020 Pre-Op Diagnosis Sterilization Post-Op Diagnosis Same Procedure Performed [facility] Surgeon Dr. Leavitt Network Director Joint Runner: Sebastien Anesthesia Type: General Blood Loss 5 ml Specimens Obtained none Findings nml size uterus, nml fallopian tubes and ovaries kandy. Complications none Operative Note see dictation KATTY LEAVITT Jr, MD Nov 27, 2020 09:45
--- NOTE | 2020-11-27 09:47 | DISCH ---
DISCHARGE INSTRUCTIONS Condition on Discharge Condition on Discharge: Stable Activity After Discharge Activity Instructions for Disc: Activity as tolerated Bathing Instructions: No Tub Bath until see Lifting Instructions after Dis: No heavy lifting, No pulling or pushing, Do not lift >10 pounds Driving Instructions after Dis: Do not drive today, Other, see below Diet after Discharge Diet after Discharge: Regular Diet Texture: Regular Liquid Texture: Thin Liquid Swallowing Supervision: None needed Wound Incision Care Wound/Incision Care: May get incision wet Contacting the DRGarfield after DC Call your doctor for: Concerns you may have Follow-Up Follow up with: Dr. Quiroga in 1 week Treatment/Equipment after DC Adaptive Equipment Issued: None KATTY QUIROGA Jr, MD Nov 27, 2020 09:47
[2020-11-27] MEDS ORDERED: OXYC1TAB15 PO (09:51)
--- NOTE | 2020-11-27 09:56 | OP ---
DATE OF SURGERY: 11/27/2020 PREOPERATIVE DIAGNOSIS: Sterilization. POSTOPERATIVE DIAGNOSIS: Sterilization. PROCEDURE: Laparoscopic bilateral tubal ligation. SURGEON: Katty Quiroga MD ANESTHESIA: GETA. ESTIMATED BLOOD LOSS: 5 mL. CREATIVE TECHNOLOGIST: Sebastien. FINDINGS: Normal size uterus, normal fallopian tubes and ovaries bilaterally. SUMMARY: A 30-year-old female, desires permanent sterilization. She was counseled on risks, benefits and expectations as well as the failure rate and voiced clear understanding to proceed. DESCRIPTION OF PROCEDURE: The patient was taken to surgery suite and placed in dorsal lithotomy position. She was prepped with Betadine solution for vaginal prep and ChloraPrep for abdominal prep. After adequate anesthesia, bivalve speculum was placed vaginally. Anterior lip of the cervix grasped with single tooth tenaculum. [place] uterine manipulator was then placed. The bivalve speculum was removed. Attention was now placed on abdomen. Small transverse skin incision was made just below the umbilicus with a scalpel. Veress needle was then placed through the infraumbilical incision site. The abdomen was allowed to insufflate up to 1-1/2 liters CO2 gas. The Veress needle was then removed, 5 mm trocar was placed. Camera was placed. Uterus appeared normal size. Fallopian tubes and ovaries appeared normal bilaterally. Second incision was made in the left lower quadrant, which an 8 mm trocar was placed. With aid of the Filshie applicator, Filshie clip was applied to the isthmus region of the right fallopian tube, totally occluding the right fallopian tube. Same process took place with left adnexa. The trocars were then removed under direct visualization. Abdomen was allowed to deflate as much as possible along with mechanical manipulation. The two skin incisions were reapproximated using 4-0 Vicryl suture in subcuticular manner. A 0.25% Marcaine with epinephrine was injected at each incision site. Uterine acorn manipulator and single tooth tenaculum were removed. The patient tolerated the procedure well and was taken to recovery room in stable condition. Sponge and needle count correct x 3. KATTY QUIROGA MD DR: PARTH/maru JOB#: [id number] / [id number]
[2020-11-27] MEDS ORDERED: PROCHLORPERAZINE 10 MG/2 ML VIAL. ONE (09:57)
[2020-11-27] MEDS ORDERED: KETOROLAC 30 MG/ML VIAL. ONE (09:57)
[2020-11-27] MEDS ORDERED: oxyCODONE/APAP 5/325 1 TAB TABLET PO ONE (10:00)
[2020-11-27] MEDS: PROCHLORPERAZINE 10 MG/2 ML VIAL. IVP PRN ×2 (10:15→10:34)
[2020-11-27] MEDS ORDERED: KETOROLAC 30 MG/ML VIAL. IVP ONE (10:15)
[2020-11-27] MEDS: fentaNYL PF VIAL 100 MCG/2 ML VIAL IVP PRN ×2 (10:16→10:27)
[2020-11-27 12:21] VITALS: BP 159/102
== END 2020-11-27 13:20 | disposition home or self-care (01) ==
LOC: SURG 07:16
PROVIDERS: ATTEND Obstetrics & Gynecology
DX: Z30.2 Encounter for sterilization (principal); E11.9 Type 2 diabetes mellitus without complications; F32.9 Major depressive disorder, single episode, unspecified; Z87.891 Personal history of nicotine dependence; Z72.89 Other problems related to lifestyle; Z98.890 Other specified postprocedural states; Z20.822 Contact with and (suspected) exposure to COVID-19
CPT/HCPCS: 58671; 81025; J0780; J1100; J1885; J2405; J2704; J2710; J3010; J3490